=== PATIENT | female | born 1970 | race Caucasian/White ===

== ENCOUNTER 2016-08-25 10:36 | Emergency (ER) | payer MEDICARE, OTHER ==
[2016-08-25 12:14] LABS: HEMOGLOBIN 14.4 gm/dl (12.3-15.3); RED BLOOD COUNT 4.34 M/UL (4.00-5.10); WHITE BLOOD COUNT 11.2 K/UL (4.5-11.0)
[2016-08-25 12:35] LABS: BUN/CREATININE RATIO 23 (0-10)
== END 2016-08-25 12:53 | disposition home or self-care (01) ==
LOC: ER1 10:36
PROVIDERS: Physician Assistant
DX: J18.9 Pneumonia, unspecified organism (principal); J44.9 Chronic obstructive pulmonary disease, unspecified; J45.909 Unspecified asthma, uncomplicated; I10 Essential (primary) hypertension; Z88.2 Allergy status to sulfonamides; Z79.899 Other long term (current) drug therapy
CPT/HCPCS: 36415; 71020; 80053; 81001; 83690; 84484; 85025; 87040; 93005; 96360; 99284

== ENCOUNTER → 2016-09-02 | Outpatient (CLI) | payer MEDICARE, OTHER | LOC: RAD 15:41 | DX: J18.9 Pneumonia, unspecified organism (principal) | CPT/HCPCS: 71020 ==

== ENCOUNTER → 2021-07-08 | Day surgery (SDC) | payer OTHER ==
[~2021-07-08] MED LIST: APRISO0.375 GM PO; CALCIUM 600 +1 EAC2 PO; CYANOCOBAL1000 MCG/1 INJ; DIFLUCAN 100 M100 MG PO; ESTRADIOL0.5 MG PO; GABAPENTIN800 MG PO; IBUPROFEN800 MG PO; NORVASC2.5 MG PO; OXYCODONE-ACET1 EACH PO; PLAQUENIL 200200 MG PO; PREDNISONE10 MG PO; SINGULAIR10 MG PO; SPIRIVA RESPIMAT4 GM INH; SYMBICORT 80-41 INHA INH; TIZANIDINE HCL2 M1 PO; VENTOLIN HFA 66.7 GM INH; VITAMIN C 500500 MG PO; VITAMIN D250000 UNIT PO; ZANTAC 150 MG150 MG PO
== END | disposition home or self-care (01) ==
LOC: OR 06:25
DX: K51.00 Ulcerative (chronic) pancolitis without complications (principal); R13.14 Dysphagia, pharyngoesophageal phase; R63.6 Underweight; Z72.0 Tobacco use; I10 Essential (primary) hypertension; J44.9 Chronic obstructive pulmonary disease, unspecified; J45.909 Unspecified asthma, uncomplicated; Z88.2 Allergy status to sulfonamides; Z90.710 Acquired absence of both cervix and uterus; Z53.29 Procedure and treatment not carried out because of patient's decision for other reasons; Z20.822 Contact with and (suspected) exposure to COVID-19
CPT/HCPCS: J7040

== ENCOUNTER 2021-08-07 20:32 | Emergency (ER) | payer OTHER, MEDICAID ==
[2021-08-07] MEDS ORDERED: CYCLOBENZAPRINE10 MG PO (23:12)
== END 2021-08-07 23:20 | disposition home or self-care (01) ==
LOC: ER1 20:32
DX: S09.90XA Unspecified injury of head, initial encounter (principal); S46.911A Strain of unspecified muscle, fascia and tendon at shoulder and upper arm level, right arm, initial encounter; S16.1XXA Strain of muscle, fascia and tendon at neck level, initial encounter; G89.29 Other chronic pain; F11.20 Opioid dependence, uncomplicated; K21.9 Gastro-esophageal reflux disease without esophagitis; J44.9 Chronic obstructive pulmonary disease, unspecified; F17.210 Nicotine dependence, cigarettes, uncomplicated; Z88.2 Allergy status to sulfonamides; V49.40XA Driver injured in collision with unspecified motor vehicles in traffic accident, initial encounter; Y92.410 Unspecified street and highway as the place of occurrence of the external cause
CPT/HCPCS: 70450; 72125; 72131; 73030; 73060; 73522; 73562; 73600; 73630; 99284